=== PATIENT | female | born 1955 | race Hispanic/Latino ===

== ENCOUNTER 2018-02-27 19:05 | Emergency (ER) | payer SELFPAY ==
[~2018-02-27] VITALS: Ht 160 cm; Wt 72.7 kg
[2018-02-27 20:20] LABS: IMMATURE GRANULOCYTES 0.8 % (0.0-5.0); MEAN CORPUSCULAR HGB CONC 32.8 g/L CALC (32.0-36.0); NEUT# 7.94 thou/uL (2.00-7.15); RED BLOOD COUNT 3.27 mill/uL (4.20-5.60); RED CELL DISTRI WIDTH 13.7 % (11.5-15.5)
[2018-02-27 20:21] LABS: HEMATOCRIT 25.9 % (37.0-47.0); HEMOGLOBIN 8.5 g/dl (12.0-16.0); MEAN CELL VOLUME 79.2 fL CALC (80.0-100.0)
[2018-02-27 20:32] LABS: ANION GAP 10 (6-22 (CALC)); BILIRUBIN, TOTAL 0.5 mg/dL (0.0-1.4); BUN 18 mg/dL (8-23); BUN/CREATININE RATIO 26 (12-20 (CALC)); CARBON DIOXIDE 27 mmol/l (22-30); CHLORIDE 100 mmol/l (95-108); CREATININE 0.7 mg/dL (0.5-1.0); GFR > 60 ML/MIN (>=60 (CALC)); GFR FOR AFR.AMER. > 60 ML/MIN (>=60 (CALC)); POTASSIUM 3.6 mmol/l (3.5-5.1); SGPT/ALT 42 u/l (11-66); SODIUM 133 mmol/l (137-146); TOTAL PROTEIN 6.1 g/dL (6.3-8.2)
[2018-02-27 20:35] LABS: ALBUMIN 2.7 g/dL (3.2-5.0); ALKALINE PHOSPHATASE 286 u/l (38-126); SGOT/AST 67 u/l (9-36)
[2018-02-27 20:44] LABS: MYOGLOBIN 34 ng/mL (0 - 62)
[2018-02-27 21:15] LABS: URINE BLOOD DIPSTICK NEGATIVE (NEGATIVE); URINE GLUCOSE - DIPSTICK NEGATIVE (NEGATIVE); URINE KETONE NEGATIVE (NEGATIVE); URINE LEUK ESTERASE NEGATIVE (NEGATIVE); URINE NITRITE - DIPSTICK NEGATIVE (Negative); URINE PROTEIN - DIPSTICK 30 mg/dL (NEG-TRACE); URINE SPECIFIC GRAVITY 1.025; URINE UROBILINOGEN - DIPSTICK 0.2 E.U./dL (0.2)
[2018-02-27 21:20] LABS: URINE BILIRUBIN - DIPSTICK NEGATIVE (NEGATIVE); URINE CLARITY CLEAR; URINE COLOR DK. YELLOW
[2018-02-27 21:28] LABS: URINE RBC 0-2 RBC/hpf (0-5); URINE SQUAMOUS EPITHELIAL CELL FEW EPI/hpf (0-FEW); URINE WBC 0-2 WBC/hpf (0-5)
[2018-02-27 23:41] VITALS: BP 107/63
== END 2018-02-27 23:53 | DRG 864 ==
LOC: ED 19:05
PROVIDERS: Emergency Medicine
DX: R50.82 Postprocedural fever (principal); Z85.038 Personal history of other malignant neoplasm of large intestine; Z90.49 Acquired absence of other specified parts of digestive tract

== ENCOUNTER 2018-07-30 15:21 | Observation (INO) | payer OTHER ==
[~2018-07-30] VITALS: Ht 160 cm; Wt 71.4 kg
[2018-07-30 16:14] LABS: IMMATURE GRANULOCYTES 0.3 % (0.0-5.0); MEAN CORPUSCULAR HGB 28.8 pG CALC (26.0-32.0); MEAN CORPUSCULAR HGB CONC 33.5 g/L CALC (32.0-36.0); NEUT# 1.7 thou/uL (2.00-7.15); RED BLOOD COUNT 3.99 mill/uL (4.20-5.60)
[2018-07-30 16:22] LABS: HEMATOCRIT 34.3 % (37.0-47.0); HEMOGLOBIN 11.5 g/dl (12.0-16.0)
[2018-07-30 16:48] LABS: ANION GAP 15 (6-22 (CALC)); BUN 22 mg/dL (8-23); BUN/CREATININE RATIO 33 (12-20 (CALC)); CARBON DIOXIDE 23 mmol/l (22-30); CHLORIDE 103 mmol/l (95-108); CREATININE 0.7 mg/dL (0.5-1.0); GFR > 60 ML/MIN (>=60 (CALC)); GFR FOR AFR.AMER. > 60 ML/MIN (>=60 (CALC)); SODIUM 136 mmol/l (137-146)
[2018-07-30] MEDS ORDERED: SERTRALINE25 MG PO (18:05)
[2018-07-30] MEDS ORDERED: LEVOTHYROXIN75 MCG PO (18:06)
[2018-07-30 18:36] LABS: ACT PARTIAL THROMBO TIME 23.5 SECONDS (20.0-32.5); INTERNATIONAL NORMALIZED RATIO 0.9 RATIO (0.7-1.3); PROTHROMBIN TIME 9.8 SECONDS (9.0-12.5)
[2018-07-30 19:45] VITALS: BP 138/66
[2018-07-30 20:31] LABS: URINE BILIRUBIN - DIPSTICK NEGATIVE (NEGATIVE); URINE BLOOD DIPSTICK NEGATIVE (NEGATIVE); URINE COLOR YELLOW; URINE GLUCOSE - DIPSTICK NEGATIVE (NEGATIVE); URINE KETONE NEGATIVE (NEGATIVE); URINE LEUK ESTERASE NEGATIVE (NEGATIVE); URINE NITRITE - DIPSTICK NEGATIVE (Negative); URINE PROTEIN - DIPSTICK NEGATIVE (NEG-TRACE); URINE SPECIFIC GRAVITY 1.015; URINE UROBILINOGEN - DIPSTICK 0.2 E.U./dL (0.2)
[2018-07-31 00:06] VITALS: BP 122/59
[2018-07-31 04:00] VITALS: BP 108/71
[2018-07-31 04:25] LABS: HEMATOCRIT 34.6 % (37.0-47.0); HEMOGLOBIN 11.5 g/dl (12.0-16.0); IMMATURE GRANULOCYTES 0.3 % (0.0-5.0); MEAN CELL VOLUME 86.3 fL CALC (80.0-100.0); MEAN CORPUSCULAR HGB 28.7 pG CALC (26.0-32.0); MEAN CORPUSCULAR HGB CONC 33.2 g/L CALC (32.0-36.0); NEUT# 1.93 thou/uL (2.00-7.15); RED BLOOD COUNT 4.01 mill/uL (4.20-5.60)
[2018-07-31 08:07] VITALS: BP 114/65
[2018-07-31 12:00] VITALS: BP 134/63
[2018-07-31 16:01] VITALS: BP 121/73
[2018-07-31 18:50] VITALS: BP 133/63
[2018-08-01] VITALS (7 sets, daily range): BP systolic 111–135; BP diastolic 55–86
[2018-08-01 04:28] LABS: HEMOGLOBIN 11.9 g/dl (12.0-16.0); IMMATURE GRANULOCYTES 0.3 % (0.0-5.0); MEAN CELL VOLUME 86.5 fL CALC (80.0-100.0); MEAN CORPUSCULAR HGB 28.6 pG CALC (26.0-32.0); MEAN CORPUSCULAR HGB CONC 33.1 g/L CALC (32.0-36.0); NEUT# 1.72 thou/uL (2.00-7.15); RED BLOOD COUNT 4.16 mill/uL (4.20-5.60); RED CELL DISTRI WIDTH 17.7 % (11.5-15.5)
[2018-08-01 04:34] LABS: PROTHROMBIN TIME 10.3 SECONDS (9.0-12.5)
[2018-08-01 04:50] LABS: AMYLASE 73 u/l (30-110); ANION GAP 15 (6-22 (CALC)); BILIRUBIN, TOTAL 0.4 mg/dL (0.0-1.4); BUN 16 mg/dL (8-23); BUN/CREATININE RATIO 21 (12-20 (CALC)); CARBON DIOXIDE 24 mmol/l (22-30); CHLORIDE 102 mmol/l (95-108); CREATININE 0.8 mg/dL (0.5-1.0); GFR > 60 ML/MIN (>=60 (CALC)); GFR FOR AFR.AMER. > 60 ML/MIN (>=60 (CALC)); LIPASE 257 u/l (23-300); POTASSIUM 4.3 mmol/l (3.5-5.1); SGOT/AST 19 u/l (9-36); SODIUM 137 mmol/l (137-146)
[2018-08-01 04:54] LABS: ALBUMIN 3.5 g/dL (3.2-5.0); ALKALINE PHOSPHATASE 99 u/l (38-126)
[2018-08-02 04:00] VITALS: BP 117/68
[2018-08-02 04:21] LABS: HEMATOCRIT 35.8 % (37.0-47.0); HEMOGLOBIN 11.8 g/dl (12.0-16.0); IMMATURE GRANULOCYTES 0.6 % (0.0-5.0); MEAN CELL VOLUME 86.5 fL CALC (80.0-100.0); MEAN CORPUSCULAR HGB 28.5 pG CALC (26.0-32.0); NEUT# 1.39 thou/uL (2.00-7.15); RED BLOOD COUNT 4.14 mill/uL (4.20-5.60); RED CELL DISTRI WIDTH 17.5 % (11.5-15.5)
[2018-08-02 04:45] LABS: INTERNATIONAL NORMALIZED RATIO 1.2 RATIO (0.7-1.3); PROTHROMBIN TIME 12.2 SECONDS (9.0-12.5)
[2018-08-02 07:30] VITALS: BP 103/52
[2018-08-02 11:13] VITALS: BP 124/75
[2018-08-02 15:51] VITALS: BP 124/63
[2018-08-02 19:08] VITALS: BP 128/73
[2018-08-03] VITALS: BP 112/64
[2018-08-03 04:02] VITALS: BP 108/68
[2018-08-03 05:40] LABS: INTERNATIONAL NORMALIZED RATIO 1.5 RATIO (0.7-1.3)
[2018-08-03 08:22] VITALS: BP 121/68
[2018-08-03 11:16] VITALS: BP 109/59
[2018-08-03] MEDS ORDERED: WARFARIN SODIUM5 MG PO (11:50)
== END 2018-08-03 13:46 | disposition home or self-care (01) ==
LOC: ED 15:21 → ED-I 17:26 → ED 17:40 → MS2 17:41
PROVIDERS: Family Medicine; Internal Medicine Nephrology; ADMIT Internal Medicine; ATTEND Internal Medicine
DX: I82.622 Acute embolism and thrombosis of deep veins of left upper extremity (principal); E03.9 Hypothyroidism, unspecified; C22.9 Malignant neoplasm of liver, not specified as primary or secondary; Z92.21 Personal history of antineoplastic chemotherapy
CPT/HCPCS: G0378; J1644; Q9967

== ENCOUNTER 2021-08-02 17:13 | Emergency (ER) | payer MEDICARE, MEDICAID ==
[~2021-08-02] VITALS: Ht 160 cm; Wt 81.8 kg
[~2021-08-02 17:13] MED LIST: LEVOTHYROXIN75 MCG PO; SERTRALINE25 MG PO; WARFARIN SODIUM5 MG PO
[2021-08-02] MEDS ORDERED: FLONASE AL50 MCG/ACT (20:06)
[2021-08-02] MEDS ORDERED: KEFLEX500 MG PO (20:06)
[2021-08-02 21:17] VITALS: BP 143/63
== END 2021-08-02 21:25 | disposition home or self-care (01) ==
LOC: ED 17:13
DX: U07.1 COVID-19 (principal); J32.9 Chronic sinusitis, unspecified; Z92.21 Personal history of antineoplastic chemotherapy; Z85.05 Personal history of malignant neoplasm of liver

== ENCOUNTER 2021-09-03 10:04 | Emergency (ER) | payer MEDICARE, MEDICAID ==
[~2021-09-03] VITALS: Ht 160 cm; Wt 83.0 kg
[~2021-09-03 10:04] MED LIST changes: +FLONASE AL50 MCG/ACT; +KEFLEX500 MG PO
[2021-09-03] MEDS ORDERED: VITAMI16 PO (10:57)
[2021-09-03] MEDS ORDERED: IS-ZC 50 50 MG1 TAB PO (10:59)
[2021-09-03] MEDS ORDERED: VITAMIN D3 COMPLETE PO (11:00)
[2021-09-03] MEDS ORDERED: VITAMIN B COMPL1 TAB PO (11:01)
[2021-09-03 11:30] LABS: HEMOGLOBIN 10.3 g/dl (12.0-16.0); IMMATURE GRANULOCYTES 0.2 % (0.0-5.0); MEAN CORPUSCULAR HGB 24.2 pG CALC (26.0-32.0); MEAN CORPUSCULAR HGB CONC 31.2 g/dL CAL (32.0-36.0); NEUT# 4.06 thou/uL (2.00-7.15); RED BLOOD COUNT 4.25 mill/uL (4.20-5.60); RED CELL DISTRI WIDTH 14.6 % (11.5-15.5)
[2021-09-03 11:31] LABS: MEAN CELL VOLUME 77.6 fL CALC (80.0-100.0)
[2021-09-03 11:49] LABS: ALBUMIN 3.8 g/dL (3.2-5.0); ALKALINE PHOSPHATASE 79 u/l (38-126); AMYLASE 86 u/l (30-110); ANION GAP 12 (6-22 (CALC)); BUN 17 mg/dL (8-23); BUN/CREATININE RATIO 22 (12-20 (CALC)); CARBON DIOXIDE 27 mmol/l (22-30); CHLORIDE 104 mmol/l (95-108); CREATININE 0.8 mg/dL (0.5-1.0); GFR > 60 ML/MIN (>=60 (CALC)); GFR FOR AFR.AMER. > 60 ML/MIN (>=60 (CALC)); LIPASE 81 u/l (23-300); SGOT/AST 26 u/l (9-36); SODIUM 138 mmol/l (137-146); TOTAL PROTEIN 7.7 g/dL (6.3-8.2)
[2021-09-03 11:55] LABS: BILIRUBIN, TOTAL 0.2 mg/dL (0.0-1.4)
[2021-09-03 12:00] LABS: MYOGLOBIN 27 ng/mL (0 - 62)
[2021-09-03 12:54] LABS: URINE BILIRUBIN - DIPSTICK NEGATIVE (NEGATIVE); URINE BLOOD DIPSTICK NEGATIVE (NEGATIVE); URINE COLOR YELLOW; URINE GLUCOSE - DIPSTICK NEGATIVE (NEGATIVE); URINE KETONE NEGATIVE (NEGATIVE); URINE LEUK ESTERASE NEGATIVE (NEGATIVE); URINE PROTEIN - DIPSTICK NEGATIVE (NEG-TRACE); URINE UROBILINOGEN - DIPSTICK 0.2 E.U./dL (0.2)
[2021-09-03 13:13] LABS: URINE NITRITE - DIPSTICK NEGATIVE (Negative)
[2021-09-03] MEDS ORDERED: SINGULAIR10 MG PO (13:37)
[2021-09-03 22:35] VITALS: BP 126/72
== END 2021-09-03 23:55 | disposition short-term general hospital (02) ==
LOC: ED 10:04
PROVIDERS: Emergency Medicine
DX: I26.99 Other pulmonary embolism without acute cor pulmonale (principal); C34.92 Malignant neoplasm of unspecified part of left bronchus or lung; C34.91 Malignant neoplasm of unspecified part of right bronchus or lung; C79.31 Secondary malignant neoplasm of brain; Z92.21 Personal history of antineoplastic chemotherapy; Z86.718 Personal history of other venous thrombosis and embolism
CPT/HCPCS: Q9967